=== PATIENT | female | born 1975 | race Caucasian/White ===

== ENCOUNTER 2016-10-09 22:10 | Emergency (ER) | payer SELFPAY ==
[~2016-10-09 22:10] MED LIST: ACULAR10 ML OD; CILOXAN5 ML OU
== END 2016-10-10 01:10 | disposition home or self-care (01) ==
LOC: SED 22:10
DX: K08.89 Other specified disorders of teeth and supporting structures (principal); R22.0 Localized swelling, mass and lump, head; F17.210 Nicotine dependence, cigarettes, uncomplicated
CPT/HCPCS: 99282